=== PATIENT | female | born 1960 | race Asian ===

== ENCOUNTER 2021-06-24 08:00 | Outpatient (CLI) | payer BC | END 2021-06-24 23:59 | disposition home or self-care (01) | LOC: LAB.S 08:00 | PROVIDERS: ATTEND Emergency Medicine | DX: U07.1 COVID-19 (principal) ==

== ENCOUNTER 2021-06-24 15:31 | Outpatient (CLI) | payer BC ==
--- NOTE | 2021-06-24 16:02 | XRAY Report ---
PROCEDURE: Chest 2 View X-Ray INDICATIONS: COVID19 INFECTION TECHNIQUE: 2 view(s) of the chest. COMPARISON: None. FINDINGS: Surgical changes and devices: None. Lungs and pleura: No pleural effusions or pneumothorax. Patchy airspace opacities in the lung bases. Increased central and perihilar interstitial opacities. Mediastinum: Mediastinal contours are normal. Heart size is normal. Bones and chest wall: No suspicious bony abnormalities. Soft tissues appear unremarkable. IMPRESSION: Mixed interstitial and airspace opacities in the central/perihilar lungs and lung bases. Findings are nonspecific but would be consistent with a viral pneumonia or pneumonitis. Reviewed by: Cuate Arndt MD on 06/24/2021 4:00 PM PDT Approved by: Cuate Arndt MD on 06/24/2021 4:00 PM PDT Station ID: [id number]
== END 2021-06-24 23:59 | disposition home or self-care (01) ==
LOC: DI.S 15:31
PROVIDERS: ATTEND Emergency Medicine
DX: U07.1 COVID-19 (principal); R06.02 Shortness of breath; R91.8 Other nonspecific abnormal finding of lung field